=== PATIENT | female | born 1975 ===

== ENCOUNTER 2021-12-09 16:44 | Emergency (ER) | payer OTHER ==
[~2021-12-09] VITALS: Ht 165.1 cm; Wt 68.0 kg
== END 2021-12-09 19:17 | disposition home or self-care (01) ==
LOC: ER 16:44
DX: L01.00 Impetigo, unspecified (principal); Z88.0 Allergy status to penicillin

== ENCOUNTER 2022-12-19 14:15 | Emergency (ER) | payer OTHER ==
[~2022-12-19] VITALS: Ht 167.6 cm; Wt 71.2 kg
== END 2022-12-19 19:16 | disposition home or self-care (01) ==
LOC: ER 14:15
DX: H60.8X2 Other otitis externa, left ear (principal); Z88.0 Allergy status to penicillin